=== PATIENT | female | born 1970 | race Caucasian/White ===

== ENCOUNTER 2018-06-21 13:30 | Outpatient (CLI) | payer MEDICAID ==
--- NOTE | 2018-06-21 15:51 | XRAY Report ---
Procedure Date: 06/21/2018 Accession Number: [id number] / [id number] Procedure: XRS - Chest 2 View X-Ray CPT Code: 61268 FULL RESULT: EXAM: Chest 2 View X-Ray DATE: 06/21/2018 1:58 PM CLINICAL HISTORY: ASYMPTOMATIC MENOPAUSAL STATE,HEMOPTYSIS COMPARISON: None. TECHNIQUE: 2 views. FINDINGS: Lungs/Pleura: No focal opacities evident. No pneumothorax or pleural effusion. Normal volumes. Mediastinum: Heart and mediastinal contours are unremarkable. Other: None. IMPRESSION: Normal 2-view chest radiography. [facility]
== END 2018-06-21 13:31 | disposition home or self-care (01) ==
LOC: DI.S 13:30
PROVIDERS: ATTEND Nurse Practitioner Family
DX: R04.2 Hemoptysis (principal); Z78.0 Asymptomatic menopausal state
CPT/HCPCS: 71046

== ENCOUNTER 2019-12-24 15:19 | Emergency (ER) | payer MEDICAID ==
--- NOTE | 2019-12-24 16:07 | ED Physician Documentation ---
History of Present Illness - Stated complaint Stated Complaint: COUGHING UP BLOOD - Chief complaint Chief Complaint: General - History obtained from History obtained from: Patient - History of Present Illness Timing: How many years ago (2) Pain level max: 0 Pain level now: 0 - Additonal information Additional information: 49-year-old female presents to the emergency department stating that she has had intermittent abscesses for the past 2 years. Has had normal chest x-rays in the past. She states that this occurs at least 1 time per month. Review of Systems Constitutional: denies: Fever, Chills Ears: denies: Ear pain Nose: denies: Rhinorrhea / runny nose, Congestion GI: denies: Nausea, Vomiting, Diarrhea Skin: denies: Rash Musculoskeletal: denies: Neck pain, Back pain PD PAST MEDICAL HISTORY - Past Medical History Cardiovascular: None Respiratory: None Neuro: None Endocrine/Autoimmune: None GI: None LMFT: None : Other HEENT: None Psych: None Musculoskeletal: None Derm: None Other Past Medical History: nephrotic syndrome 2002 - Past Surgical History Past Surgical History: No - Allergies Allergies/Adverse Reactions: Allergies Allergy/AdvReac Type Severity Reaction Status Date / Time No Known Drug Allergies Allergy Verified 12/24/19 15:25 - Social History Does the pt smoke?: No Smoking Status: Never smoker Does the pt drink ETOH?: Yes ETOH Use: Wine, Beer, Liquor Does the pt have substance abuse?: Yes Substance Use and Type: Marijuana - Immunizations Immunizations are current?: No Immunizations: TDAP >10years/unknown - POLST Patient has POLST: No PD ED PE NORMAL - Vitals Vital signs reviewed: Yes - General General: Alert and oriented X 3, No acute distress, Well developed/nourished - HEENT HEENT: Moist mucous membranes, Pharynx benign - Neck Neck: Supple, no meningeal sign - Cardiac Cardiac: RRR, Strong equal pulses - Respiratory Respiratory: No respiratory distress, Clear bilaterally - Abdomen Abdomen: Soft, Non tender, Non distended - Derm Derm: Warm and dry - Extremities Extremities: No edema - Neuro Neuro: Alert and oriented X 3 - Psych Psych: Normal mood, Normal affect Results - Vitals Vitals: Vital Signs - 24 hr 12/24/19 12/24/19 12/24/19 15:25 15:52 18:05 Temperature 36.7 C 36.9 C Heart Rate 92 86 69 Respiratory 14 16 20 Rate Blood Pressure 146/95 H 167/98 H 146/94 H O2 Saturation 98 97 98 Oxygen O2 Source Room air - Labs Labs: Laboratory Tests 12/24/19 12/24/19 12/24/19 16:13 16:13 16:13 WBC 7.3 RBC 4.01 L Hgb 13.8 Hct 40.1 MCV 100.0 H MCH 34.4 H MCHC 34.4 RDW 12.1 Plt Count 276 MPV 10.8 Neut # (Auto) 5.2 Lymph # (Auto) 1.5 [place] # (Auto) 0.4 Eos # (Auto) 0.2 Baso # (Auto) 0.1 Absolute Nucleated RBC 0.00 Nucleated RBC % 0.0 PT 12.0 INR 1.1 APTT 31.9 Sodium 138 Potassium 3.5 Chloride 98 L Carbon Dioxide 27 Anion Gap 13.0 BUN 12 Creatinine 0.7 Estimated GFR (MDRD) 89 Glucose 129 H Calcium 9.1 Total Bilirubin 0.4 AST 43 H ALT 76 H Alkaline Phosphatase 61 Total Protein 7.4 Albumin 4.0 Globulin 3.4 Albumin/Globulin Ratio 1.2 Lipase 40 - Rads (name of study) Ct chest Radiology: Prelim report reviewed, EMP read contemporaneously, See rad report ( Normal chest CT. ) PD MEDICAL DECISION MAKING - ED course Complexity details: reviewed results, re-evaluated patient, considered d ifferential, d/w patient ED course: Patient with hemoptysis for the past 2 years of unclear etiology. No significant lab abnormalities. No abnormalities on CT of the chest. Recommend that she follow-up with her doctor for further care. Patient counseled regarding signs and symptoms for which I believe and urgent re-evaluation would be necessary. Patient with good understanding of and agreement to plan and is comfortable going home at this time This document was made in part using voice recognition software. While efforts are made to proofread this document, sound alike and grammatical errors may occur. Departure - Departure Disposition: 01 Home, Self Care Clinical Impression: Hemoptysis Condition: Good Instructions: ED Hemoptysis Follow-Up: Your,doctor in 1 week [Other] Comments: You need to follow-up with your doctor for further evaluation. You may need a referral to pulmonology or ENT for further investigation. Your laboratory studies and CT scan do not show any acute abnormalities tonight.
[2019-12-24 16:17] LABS: BASOPHILS # (AUTO) 0.1 10^3/uL (0.0-0.1); BASOPHILS % (AUTO) 0.8 %; EOSINOPHILS # (AUTO) 0.2 10^3/uL (0.0-0.7); EOSINOPHILS % (AUTO) 2.1 %; HGB - HEMOGLOBIN 13.8 g/dL (12.0-16.0); LYMPHOCYTES # (AUTO) 1.5 10^3/uL (1.5-3.5); LYMPHOCYTES % (AUTO) 20.5 %; MEAN CORPUSCULAR HEMOGLOBIN 34.4 pg (27.0-31.0); MEAN CORPUSCULAR HGB CONC 34.4 g/dL (32.0-36.0); MEAN PLATELET VOLUME 10.8 fL (7.9-10.8); MONOCYTES # (AUTO) 0.4 10^3/uL (0.0-1.0); MONOCYTES % (AUTO) 4.9 %; NEUTROPHILS # (AUTO) 5.2 10^3/uL (1.5-6.6); NEUTROPHILS % (AUTO) 71.4 %; PLT - PLATELET COUNT 276 10^3/uL (130-450); RED BLOOD COUNT 4.01 10^6/uL (4.20-5.40); RED CELL DISTRIBUTION WIDTH 12.1 % (12.0-15.0); WHITE BLOOD COUNT 7.3 x10^3/uL (4.8-10.8)
[2019-12-24 16:23] LABS: INR 1.1 (0.8-1.2)
[2019-12-24] MEDS ORDERED: IOVERSOL 320 100 ML VIAL IVP ONE ×2 (16:24→17:50)
[2019-12-24 16:30] LABS: ALBUMIN/GLOBULIN RATIO 1.2 (1.0-2.2); BILIRUBIN,TOTAL 0.4 mg/dL (0.2-1.0); CALCIUM 9.1 mg/dL (8.5-10.3); CREATININE 0.7 mg/dL (0.4-1.0); PARTIAL THROMBOPLASTIN TIME 31.9 secs (24.9-33.3); TOTAL PROTEIN 7.4 g/dL (6.7-8.2)
--- NOTE | 2019-12-24 18:03 | CT Report ---
Reason: hemoptysis x 2 years Procedure Date: 12/24/2019 Accession Number: [id number] / [id number] Procedure: CT - CHEST W CPT Code: Final Report FULL RESULT: EXAM: CT CHEST EXAM DATE: 12/24/2019 05:47 PM. CLINICAL HISTORY: Hemoptysis and chest pain x 2 years. COMPARISONS: None. TECHNIQUE: Routine helical CT imaging was performed through the chest. IV contrast: 80 cc of Optiray 320. Reconstructions: Coronal and sagittal. In accordance with CT protocol optimization, one or more of the following dose reduction techniques were utilized for this exam: automated exposure control, adjustment of mA and/or KV based on patient size, or use of iterative reconstructive technique. FINDINGS: Lungs/Pleura: No nodules, bronchial thickening, consolidation, or edema. Pulmonary vasculature is normal. No pericardial or pleural effusion. No pneumothorax. Mediastinum: Normal. No adenopathy or masses. The heart and great vessels are normal. Bones: Unremarkable. Visualized Abdomen: Diffuse liver low density noted. Other: None. IMPRESSION: Normal chest CT. [facility]
[2019-12-24 18:06] VITALS: BP 146/94
== END 2019-12-24 18:19 | disposition home or self-care (01) ==
LOC: ED 15:19
DX: R04.2 Hemoptysis (principal)
CPT/HCPCS: 36415; 71260; 80053; 83690; 85025; 85610; 85730; 99284; Q9967

== ENCOUNTER 2021-03-12 08:00 | Outpatient (CLI) | payer MEDICAID ==
[2021-03-12 20:06] LABS: BASOPHILS # (AUTO) 0.1 10^3/uL (0.0-0.1); BASOPHILS % (AUTO) 1.1 %; EOSINOPHILS # (AUTO) 0.2 10^3/uL (0.0-0.7); EOSINOPHILS % (AUTO) 2.1 %; HCT - HEMATOCRIT 42.5 % (37.0-47.0); HGB - HEMOGLOBIN 14.4 g/dL (12.0-16.0); LYMPHOCYTES # (AUTO) 1.8 10^3/uL (1.5-3.5); LYMPHOCYTES % (AUTO) 23.9 %; MEAN CORPUSCULAR HEMOGLOBIN 34.3 pg (27.0-31.0); MEAN CORPUSCULAR HGB CONC 33.9 g/dL (32.0-36.0); MEAN CORPUSCULAR VOLUME 101.2 fL (81.0-99.0); MEAN PLATELET VOLUME 11.5 fL (7.9-10.8); MONOCYTES # (AUTO) 0.5 10^3/uL (0.0-1.0); NEUTROPHILS % (AUTO) 66.6 %; PLT - PLATELET COUNT 258 10^3/uL (130-450); RED CELL DISTRIBUTION WIDTH 11.9 % (12.0-15.0); WHITE BLOOD COUNT 7.6 x10^3/uL (4.8-10.8)
[2021-03-12 20:12] LABS: PT - PROTHROMBIN TIME 11.5 secs (9.9-12.6)
[2021-03-12 20:15] LABS: ALBUMIN 4.2 g/dL (3.2-5.5); ALBUMIN/GLOBULIN RATIO 1.2 (1.0-2.2); BILIRUBIN,TOTAL 0.6 mg/dL (0.2-1.0); CALCIUM 9.7 mg/dL (8.5-10.3); CREATININE 0.6 mg/dL (0.4-1.0); POTASSIUM 3.6 mmol/L (3.5-5.0); TOTAL PROTEIN 7.8 g/dL (6.7-8.2)
== END 2021-03-12 23:59 | disposition home or self-care (01) ==
LOC: LAB.S 08:00
PROVIDERS: ATTEND Emergency Medicine
DX: R13.10 Dysphagia, unspecified (principal); R10.12 Left upper quadrant pain
CPT/HCPCS: 36415; 80053; 83690; 85025; 85610

== ENCOUNTER 2024-01-05 07:00 | Outpatient (CLI) | payer MEDICAID ==
--- NOTE | 2024-01-05 14:38 | XRAY Report ---
PROCEDURE: Chest 2V INDICATIONS: CHRONIC COUGH TECHNIQUE: 2 views of the chest were acquired. COMPARISON: CT chest 12/24/2019 FINDINGS: Surgical changes and devices: None. Lungs and pleura: No pleural effusions or pneumothorax. Lungs are clear. Mediastinum: Mediastinal contours appear normal. Heart size is normal. Bones and chest wall: No suspicious bony lesions. Overlying soft tissues appear unremarkable. IMPRESSION: No acute cardiopulmonary process. Reviewed by: Aranza Villatoro MD on 01/05/2024 2:37 PM PST Approved by: Aranza Villatoro MD on 01/05/2024 2:37 PM [facility] Station ID: [id number]
== END 2024-01-05 23:59 | disposition home or self-care (01) ==
LOC: DI.S 07:00
PROVIDERS: ATTEND Physician Assistant
DX: R05.3 Chronic cough (principal)